=== PATIENT | male | born 1985 | race Native Hawaiian/Other Pacific Islander ===

== ENCOUNTER 2018-12-16 18:10 | Emergency (ER) | payer OTHER ==
[~2018-12-16] VITALS: Ht 180.3 cm; Wt 81.6 kg
[2018-12-16 19:14] VITALS: BP 141/86; TEMP 97.7
== END 2018-12-16 19:15 | disposition home or self-care (01) ==
LOC: ED 18:10
DX: N45.1 Epididymitis (principal)
CPT/HCPCS: 81000; 99282